=== PATIENT | female | born 1990 | race Caucasian/White ===

== ENCOUNTER 2016-12-10 18:22 | Emergency (ER) | payer SELFPAY ==
[~2016-12-10] VITALS: Ht 180.3 cm; Wt 44.5 kg
[~2016-12-10 18:22] MED LIST: FLEXERIL10 MG PO; NAPROXEN500 MG PO; VICODIN,LORT1 TABLET PO
[2016-12-10 19:18] LABS: EOSINOPHIL (%) 0.5 % (0-5); HEMATOCRIT 38.9 % (36.0-46.0); IMMATURE GRANULOCYTE (%) 0.3 % (0.0-0.7); INSTRUMENT ABS NEUTROPHIL CT 4.3 K/uL; MCH 32.3 PG (29.0-34.0); MCHC 33.7 G/DL (30.0-36.0); MEAN PLAT.VOLUME 11.1 uM^3 (9.5-12.4); MONOCYTE COUNT 0.5 K/uL (0-0.8); NEUTROPHIL (%) 73.7 % (45-76); NEUTROPHIL COUNT 4.3 K/uL (1.8-6.4); PLATELET COUNT 151 K/uL (156-360); RBC DIS.WIDTH-CV 11.6 % (11.8-14.6); RBC DIS.WIDTH-SD 41.1 % (39-53); RED BLOOD COUNT 4.05 M/uL (3.80-5.20); WHITE BLOOD COUNT 5.9 K/uL (4.1-10.2)
[2016-12-10 19:27] LABS: CHLORIDE 106 mEq/L (99-109); POTASSIUM 4.5 mEq/L (3.7-5.4); SODIUM 139 mEq/L (136-147)
[2016-12-10 19:28] LABS: MAGNESIUM 2.2 mg/dL (1.3-2.7)
[2016-12-10 19:29] LABS: GLUCOSE 102 mg/dL (70-99)
[2016-12-10 19:31] LABS: ANION GAP 7 MEQ/L (2-14)
[2016-12-10 19:33] LABS: GFR ESTIMATE (CALCULATED) > 59 mL/min/
[2016-12-10 19:34] LABS: UREA NITROGEN (BUN) 13 mg/dL (9-23)
[2016-12-10 19:41] LABS: QUANTITATIVE HCG < 4.0 MIU/ML
[2016-12-10 21:56] VITALS: BP 104/60
== END 2016-12-10 22:21 | disposition home or self-care (01) ==
LOC: EME 18:22
PROVIDERS: Emergency Medicine
DX: R51 Headache (principal); T67.1XXA Heat syncope, initial encounter; E86.0 Dehydration; F17.200 Nicotine dependence, unspecified, uncomplicated
CPT/HCPCS: 80048; 81003; 83735; 84702; 85025; 99281; 99284; J1200; J2765; J7030